=== PATIENT | male | born 2005 | race Asian ===

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

== ENCOUNTER 2024-02-11 15:04 | Emergency (ER) | payer OTHER ==
[~2024-02-11] VITALS: Ht 175.3 cm; Wt 90.9 kg
[2024-02-11 15:26] VITALS: TEMP 98.4
[2024-02-11 17:30] VITALS: BP 119/75; PULSE 74; RESP 18; O2SAT 99
[2024-02-11] MEDS: HYDROCODONE/ACETAMINOPHEN 5-325 MG TABLET PO ONE (18:48)
[2024-02-11] MEDS ORDERED: HYDR-4062 PO (18:57)
[2024-02-11] MEDS ORDERED: ACET-66 PO (18:57)
[2024-02-11] MEDS ORDERED: IBUP-1492 PO (18:57)
== END 2024-02-11 19:59 | disposition home or self-care (01) ==
LOC: EMS 15:17
DX: S82.51XA Displaced fracture of medial malleolus of right tibia, initial encounter for closed fracture (principal); S82.491A Other fracture of shaft of right fibula, initial encounter for closed fracture; X50.1XXA Overexertion from prolonged static or awkward postures, initial encounter; Y92.219 Unspecified school as the place of occurrence of the external cause; Y93.51 Activity, roller skating (inline) and skateboarding; Y99.8 Other external cause status
CPT/HCPCS: 29515; 99283